=== PATIENT | female | born 1930 | race Hispanic/Latino ===

== ENCOUNTER 2016-11-24 10:48 | Outpatient (CLI) | payer MEDICARE ==
[2016-11-24 11:53] LABS: Prothrombin Time 27.9 SEC (12.0-14.7)
== END 2016-11-24 10:49 | disposition home or self-care (01) ==
LOC: HPCALD 10:48
PROVIDERS: ATTEND Family Medicine
DX: I48.91 Unspecified atrial fibrillation (principal)
CPT/HCPCS: 36415; 85610

== ENCOUNTER 2016-12-31 10:26 | Outpatient (CLI) | payer MEDICARE ==
[2016-12-31 11:29] LABS: Prothrombin Time 18.5 SEC (12.0-14.7)
== END 2016-12-31 10:27 | disposition home or self-care (01) ==
LOC: HPCALD 10:26
PROVIDERS: ATTEND Family Medicine
DX: I48.91 Unspecified atrial fibrillation (principal)
CPT/HCPCS: 36415; 85610

== ENCOUNTER 2017-01-13 10:45 | Outpatient (CLI) | payer MEDICARE ==
[2017-01-13 11:21] LABS: Prothrombin Time 32.4 SEC (12.0-14.7)
== END 2017-01-13 10:46 | disposition home or self-care (01) ==
LOC: HPCALD 10:45
PROVIDERS: ATTEND Family Medicine
DX: I48.91 Unspecified atrial fibrillation (principal)
CPT/HCPCS: 36415; 85610

== ENCOUNTER 2017-01-27 15:45 | Outpatient (CLI) | payer MEDICARE ==
[2017-01-27 16:11] LABS: Prothrombin Time 24.3 SEC (12.0-14.7)
[2017-01-27 16:13] LABS: #Basophils 0.1 thou/uL (0.0-0.2); #Eosinphils 0.1 thou/uL (0.0-0.7); #Lymphocytes 1.4 thou/uL (1.20-3.40); #Monocytes 0.4 thou/uL (0.11-0.59); #Neutrophils 3.8 thou/uL (1.40-6.50); %Basophils 0.9 % (0.0-1.0); %Monocytes 6.6 % (0.0-10.0); Hematocrit 42.8 % (36.0-47.0); Mean Platelet Volume 8.1 fL (7.4-10.4); Red Blood Cell (RBC) Count 4.54 mill/uL (4.20-5.40); White Blood Cell (WBC) Count 5.7 thou/uL (4.8-10.8)
[2017-01-27 16:19] LABS: AST (SGOT) 29 U/L (5-34); Bilirubin, Total 0.5 mg/dL (0.2-1.2); Calcium 10.4 mg/dL (7.8-10.44); Chloride 105 mmol/L (98-107)
[2017-01-27 19:44] LABS: ALT (SGPT) 20 U/L (0-55); Alkaline Phosphatase 42 U/L (40-150); BUN (Urea Nitrogen) 24 mg/dL (9.8-20.1); Calc. Creatinine Clearance 0 mL/min (70-130); Carbon Dioxide 21 mmol/L (23-31); Estimated GFR-MDRD 60; Protein, Total 7.3 g/dL (5.8-8.1)
[2017-01-27 20:06] LABS: Anion Gap 18 mmol/L (10-20); LDL Cholesterol, Calculated 78 mg/dL
== END 2017-01-27 15:46 ==
LOC: HPCALD 15:45
PROVIDERS: ATTEND Family Medicine
DX: E78.5 Hyperlipidemia, unspecified (principal); I10 Essential (primary) hypertension; I48.91 Unspecified atrial fibrillation
CPT/HCPCS: 36415; 80053; 80061; 84443; 85025; 85610

== ENCOUNTER 2017-03-07 15:49 | Outpatient (CLI) | payer MEDICARE ==
[2017-03-07 16:47] LABS: INR-International Normal Ratio 3.4; Prothrombin Time 35.5 SEC (12.0-14.7)
== END 2017-03-07 15:50 ==
LOC: HPCALD 15:49
PROVIDERS: ATTEND Family Medicine
DX: I48.91 Unspecified atrial fibrillation (principal)
CPT/HCPCS: 36415; 85610

== ENCOUNTER 2017-03-15 09:57 | Outpatient (CLI) | payer MEDICARE ==
[2017-03-15 11:22] LABS: INR-International Normal Ratio 2.9; Prothrombin Time 31.6 SEC (12.0-14.7)
== END 2017-03-15 09:58 ==
LOC: HPCALD 09:57
PROVIDERS: ATTEND Family Medicine
DX: I48.91 Unspecified atrial fibrillation (principal)
CPT/HCPCS: 36415; 85610

== ENCOUNTER 2017-03-28 15:56 | Outpatient (CLI) | payer MEDICARE ==
[2017-03-28 16:22] LABS: INR-International Normal Ratio 2.8; Prothrombin Time 30.4 SEC (12.0-14.7)
== END 2017-03-28 15:57 | disposition home or self-care (01) ==
LOC: HPCALD 15:56
PROVIDERS: ATTEND Family Medicine
DX: I48.91 Unspecified atrial fibrillation (principal)
CPT/HCPCS: 36415; 85610

== ENCOUNTER 2017-05-03 09:15 | Outpatient (CLI) | payer MEDICARE ==
[2017-05-03 09:35] LABS: INR-International Normal Ratio 3.1; Prothrombin Time 33.3 SEC (12.0-14.7)
== END 2017-05-03 09:16 | disposition home or self-care (01) ==
LOC: HPCALD 09:15
PROVIDERS: ATTEND Family Medicine
DX: I48.91 Unspecified atrial fibrillation (principal)
CPT/HCPCS: 36415; 85610

== ENCOUNTER 2017-05-13 13:16 | Outpatient (CLI) | payer MEDICARE ==
[2017-05-13 13:35] LABS: INR-International Normal Ratio 2.7; Prothrombin Time 29.9 SEC (12.0-14.7)
== END 2017-05-13 13:17 | disposition home or self-care (01) ==
LOC: HPCALD 13:16
PROVIDERS: ATTEND Family Medicine
DX: I48.91 Unspecified atrial fibrillation (principal)
CPT/HCPCS: 36415; 85610

== ENCOUNTER 2017-07-27 12:18 | Outpatient (CLI) | payer MEDICARE ==
[2017-07-27 12:38] LABS: INR-International Normal Ratio 1.9; Prothrombin Time 22.2 SEC (12.0-14.7)
== END 2017-07-27 12:19 | disposition home or self-care (01) ==
LOC: HPCALD 12:18
PROVIDERS: ATTEND Family Medicine
DX: Z51.81 Encounter for therapeutic drug level monitoring (principal); I48.91 Unspecified atrial fibrillation; Z79.01 Long term (current) use of anticoagulants
CPT/HCPCS: 36415; 85610

== ENCOUNTER 2017-07-27 12:34 | Outpatient (CLI) | payer MEDICARE ==
--- NOTE | 2017-07-27 19:01 | RAD ---
LEFT RIBS THREE VIEWS 07/27/17 Comparison is made with an 10/15/08 study. There is a fracture of the left 11th rib through its mid portion with very slight inferior displacement of the distal fragment. A few irregularities of other ribs were noted, but none were diagnostic of fracture. No pneumothorax, pleural effusion, or signif icant pulmonary infiltrate was seen. There appears to be a dense calcification in the left breast wh ich could be in something like a fibroadenoma. IMPRESSION: Fracture of the left 11th rib. Code T POS: HOME
== END 2017-07-27 12:35 | disposition home or self-care (01) ==
LOC: BURRAD 12:34
PROVIDERS: ATTEND Family Medicine
DX: S20.212D Contusion of left front wall of thorax, subsequent encounter (principal); S22.32XD Fracture of one rib, left side, subsequent encounter for fracture with routine healing
CPT/HCPCS: 36415; 82565